=== PATIENT | female | born 1985 | race Caucasian/White ===

== ENCOUNTER 2019-07-27 11:56 | Outpatient (CLI) | payer BC, SELFPAY ==
[2019-07-27 12:09] LABS: Hematocrit 36.2 % (37.0-47.0); Hemoglobin 11.5 g/dL (12.0-15.0); Mean Corpuscular HGB Conc 31.8 g/dl (32-36); Mean Corpuscular Hemoglobin 26.1 pg (26-34); Mean Corpuscular Volume 82.1 fl (80-100); Mean Platelet Volume 10.3 fl (7.4-10.4); Platelet Count Result 281 k/mm3 (150-375); Red Blood Count 4.41 M/mm3 (4.2-5.4); Red Cell Distribution Width 13.8 % (11.5-14.5); White Blood Count 10.4 K/mm3 (4.5-10.0)
[2019-07-29 10:50] LABS: Rapid Plasma Reagin Non-Reactive (NonReactive)
== END 2019-07-27 11:57 | disposition home or self-care (01) ==
PROVIDERS: Visit Provider Obstetrics & Gynecology
DX: Z34.93 Encounter for supervision of normal pregnancy, unspecified, third trimester (principal); Z3A.00 Weeks of gestation of pregnancy not specified
CPT/HCPCS: 36415; 85027; 86592; 86850; 86900; 86901

== ENCOUNTER 2019-07-29 05:28 | Inpatient (IN) | payer BC, SELFPAY ==
--- NOTE | 2019-07-16 13:51 | PC.NURSE ---
VERIFIED WITH OR SCHEDULE AND PATIENT--C/S ON 07/29/19 AT 0730 PATIENT GIVEN REQUISITION FOR LAB DRAW ON 07/27/19
--- NOTE | 2019-07-24 07:59 | PM.IMHP ---
H&P: HPI History of Present Illness Chief complaint: PREIN, previous csection Narrative: Iva Moralse is a 33 year old female 2 PARA 1001 LAST MENSTRUAL PERIOD WAS JUNE OF 2018 WHOSE EDC is 08/04/2019 confirmed by 1st trimester ultrasound presents for repeat section. Had IVF giving an EDC of 08/04/2019. Her has been complicated. 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 She declined attempt at Review of Systems Review of Systems: All systems reviewed & are unremarkable except as noted in HPI and below PMFSH Family History Family History Mother Hypertension Gout Father Gout Sibling Brain tumor Social History Social History Substance use: never Spiritual care concerns: No Meds Home Medications and Allergies Home Medications Medication Instructions Recorded Confirmed Type PNV cmb#95-ferrous fumarate-FA 1 tablet PO DAILY 07/16/19 07/16/19 History [] Allergies Allergy/AdvReac Type Severity Reaction Status Date / Time No Known Allergies Allergy Verified 07/16/19 13:31 Exam Const: General: no acute distress Eyes: General: appearance normal, both eyes and all related structures Neck: Neck: supple and no JVD Thyroid: thyroid normal Resp: Effort & Inspection: normal respiratory effort Auscultation: clear to auscultation bilaterally Cardio: Rate: regular rate Rhythm: regular rhythm GI: Inspection: normal to inspection ( uterus is soft and gravid.) : General: Yes bladder normal to palpation External Female Exam: normal external appearance Speculum Exam - Vagina: normal vaginal discharge and No vaginal bleeding Speculum Exam - Cervix: nontender Bimanual exam- vagina & uterus: bladder normal to palpation and No Cervical tenderness present OB/external & speculum: No vaginal bleeding Skin: General skin exam: no rashes or lesions noted Extrem: General: normal to inspection and no edema Psych: Mental Status: mental status grossly normal Affect: normal affect Assessment and Plan Additional Plan Impression: Term with previous section Plan: Repeat low-transverse section
[2019-07-29] VITALS (72 sets, daily range): BP systolic 94–136; BP diastolic 52–88; PULSE 48–133; RESP 11–18; TEMP 36.3–37.1; O2SAT 96–100; BMI 31.1
[2019-07-29] MEDS: LACTATED RINGERS 1,000 ML 999 ML IV CONT ×2 (05:55→06:44)
--- NOTE | 2019-07-29 05:56 | LDADM ---
This patient, Iva Morales, was admitted to Labor/Delivery/Recovery 120 on 07/29/19 at 05:28. Plans for labor, pain management and were discussed with patient. Patient/family oriented to hospital policies and general routines including ID bracelet, bed and alarms, visiting hours, pain management, procedures, bathroom and other care routines, personal items, smoking policy, room service/diet and guest tray routines, infant security routines, and visiting hours. Patient/Family are encouraged to report perceived risks to care and to ask questions if they do not understand what they are told or what they should do. See OBIX for further documentation.
--- NOTE | 2019-07-29 06:50 | WPDHPUPDATE1 ---
History and Physical Update Update Date/Time: 07/29/19 06:50 History and Physical has been reviewed, including an updated exam of the patient. There are NO changes in the patient's condition. Risks, benefits, and alternatives have been discussed and questions answered. Patient agrees to proceed with procedure.
--- NOTE | 2019-07-29 07:00 | WPDANESEPPF ---
Anes - Initial Pre Proc Eval Procedure: Operation Date: 07/29/19 07:30 Proposed Procedures p Repeat Section - Narendra Mak MD Date/Time: 07/29/19 07:00 Surgeon: Narendra Mak MD Pre Op Diagnosis: section Patient Data Age: 33 Gender: F Height: Weight: Last Vital Signs Pulse 59 L 07/29/19 06:31 BP 127/72 07/29/19 06:31 Allergies Allergy/AdvReac Type Severity Reaction Status Date / Time No Known Allergies Allergy Verified 07/16/19 13:31 Home Medications Medication Instructions Recorded Confirmed Type PNV cmb#95-ferrous fumarate-FA 1 tablet PO DAILY 07/16/19 07/16/19 History [] hydrocodone-acetaminophen [[place]] 1 tablet PO Q4H PRN #30 tablet 07/29/19 Rx Patient hx anesthesia problems: none Family hx anesthesia problems: none PMFSH Past Medical History Medical History (Updated 07/29/19 @ 07:06 by Wallace Suh MD) Pituitary tumor Surgical History Surgical History (Updated 07/29/19 @ 07:00 by Wallace Suh MD) Hx of section Family History Family History Mother Hypertension Gout Father Gout Sibling Brain tumor Social History Social History Smoking status: Never smoker Second hand tobacco smoke exposure: No Substance use: never Spiritual care concerns: No Anes - Eval Final PreProcedure Day of Procedure 07/29/19 07:00 Patient weight: overweight Heart: regular rate and rhythm Lungs: clear to auscultation and normal air movement Airway: Mallampati scale class II Neurological: alert and oriented Last oral intake: >/= 8 hours ASA classification: II Emergent: no Anesthetic plan: proceed Anesthesia type and monitoring: regional spinal Informed Consent: The patient's anesthetic plan and its attendant risks and benefits were discussed with the patient/family/POA. Questions were solicited and answers provided to the satisfaction of the patient/family/POA.
[2019-07-29] MEDS: ceFAZolin 2 GM/D5W 50 ML 2 GM/50 ML BAG IVPB (07:08)
--- NOTE | 2019-07-29 08:07 | PM.PROC ---
Procedure Note - Detailed Date of procedure: 07/29/19 Pre-op diagnosis: section Surgeon: Narendra Mak MD Postop diagnosis repeat section EBL: 395cc Anesthesia: Spinal Procedure: Repeat section Findings: Female 7 lb 3 oz with Apgars of 8 and 9 at 1 and 5 minutes respectively Complications: None Description of procedure patient was prepped and draped in the normal sterile fashion and placed in the e supine position. The abdomen was opened in the Pfannenstiel fashion and progressive layer to the fascia. The fascia was incised in upward outward fashion bilaterally. The underlying muscle sharp dissected. The prior peritoneum elevated Lisy clamps and entered by sharp dissection superiorly and inferiorly down the bladder. Bladder blade was placed bladder flap was formed bladder blade was returned. A low-transverse incision made in the head delivered in the CANDICE position. Anterior posterior shoulder delivered spontaneously. Cord clamped x2 and cut. passed off the table given Apgars of 8 and 9 [id number] and 9 [id number] respectively. Cord clamped x2 and cut passed off the table. The placenta delivered intact manually. After inspecting the uterus for any debris or remains. The fascia was closed with continuous running locking 0 Vicryl from lateral edge to lateral edge. This was followed by a 2nd imbricating running locking 0 Vicryl from lateral edge to lateral edge. Hemostasis was assured ovaries and tubes appeared within normal limits. The uterus returned to the abdomen. The in hysterotomy incision inspected 1 last time and noted to be hemostatic. The laps removed and accounted for. The fascia closed with continuous running 0 Vicryl from lateral edge to midline bilaterally. Irrigation subcutaneous layer and the skin closed with 4 O Monocryl and glue. Blood loss was estimated at 395. All sponge, needle, instrument counts were correct. There were no immediate complications
[2019-07-29] MEDS: KETOROLAC 30 MG/ML VIAL (*BKC) IV PUSH (08:11)
[2019-07-29] MEDS: ONDANSETRON INJ 4 MG/2 ML VIAL IV PUSH (09:24)
[2019-07-29] MEDS: DEXTROSE 5%/0.45% SOD CHL 1,000 ML 125 ML IV CONT (14:55)
[2019-07-29] MEDS: IBUPROFEN 600 MG TABLET PO (19:36)
[2019-07-29] MEDS: DOCUSATE SODIUM 100 MG CAPSULE PO (19:36)
[2019-07-29] MEDS: SIMETHICONE 80 MG TAB.CHEW PO (19:36)
--- NOTE | 2019-07-29 20:08 | PC.NURSE ---
1035Pt admitted to room 281 per stretcher after repeat delivery of viable female at [address] Buck Justice. Mother is a and is choosing to bottle feed . /FOB present; oriented to room, staffing and procedures. Admission folder reviewed. Pt's VSS and assessment WNL.
[2019-07-30 04:50] VITALS: BP 121/64; PULSE 89; RESP 13; TEMP 36.7; O2SAT 100
[2019-07-30] MEDS: IBUPROFEN 600 MG TABLET PO ×3 (04:59→22:42)
[2019-07-30 05:39] LABS: Basophils Percent Auto 0.2 % (0.2-1.2); Eosinophils Absolute Auto 0.1 K/mm3 (0-0.3); Eosinophils Percent Auto 0.7 % (0-4.4); Hematocrit 26.7 % (37.0-47.0); Hemoglobin 8.6 g/dL (12.0-15.0); Immature Granulocyte Absolute 0.07 K/mm3 (0.00-0.031); Immature Granulocyte Percent A 0.6 % (0-0.5); Lymphocytes Absolute Auto 1.69 K/mm3 (0.9-3.2); Lymphocytes Percent Auto 14.5 % (18.3-44.2); Mean Corpuscular HGB Conc 32.2 g/dl (32-36); Mean Corpuscular Hemoglobin 26.9 pg (26-34); Mean Corpuscular Volume 83.4 fl (80-100); Mean Platelet Volume 10.4 fl (7.4-10.4); Monocytes Absolute Auto 0.8 K/mm3 (0.1-0.6); Monocytes Percent Auto 6.8 % (2.6-8.5); Neutrophils Percent Auto 77.2 % (45.5-73.1); Platelet Count Result 279 k/mm3 (150-375); Red Cell Distribution Width 14.5 % (11.5-14.5); White Blood Count 11.7 K/mm3 (4.5-10.0)
--- NOTE | 2019-07-30 06:40 | PC.NURSE ---
PT introductions made and plan of care discussed per post op c section, pain management, bottle feeding, daily care activities. PT verbalized understanding of such care.
--- NOTE | 2019-07-30 06:44 | PM.OBPNVD ---
OB - PN: Subj Subjective Date/time seen: 07/30/19 06:44 Patient comments: no complaints and pain well controlled baby status: doing well and nursing well OB - PN: Obj Data Labs CBC & Chem 7: 07/30/19 04:53 Labs: Laboratory Results - last 24 hr 07/30/19 04:53 WBC 11.7 H RBC 3.20 L Hgb 8.6 L Hct 26.7 L MCV 83.4 MCH 26.9 MCHC 32.2 RDW 14.5 Plt Count 279 MPV 10.4 Immature Gran % (Auto) 0.6 H Neut % (Auto) 77.2 H Lymph % (Auto) 14.5 L [place] % (Auto) 6.8 Eos % (Auto) 0.7 Baso % (Auto) 0.2 Lymph # (Auto) 1.69 [place] # (Auto) 0.8 H Eos # (Auto) 0.1 Baso # (Auto) 0.0 Abs Immat Gran (auto) 0.07 H Absolute Neuts (auto) 9.0 H Absolute Nucleated RBC 0.0 Nucleated RBC % 0.0 OB - PN A/P Plan day: 1 Plan: routine care Time Spent With Patient Time: Total time spent is greater than 50% in coordination of care (as documented) at patient's floor/unit and/or counseling patient: Time with patient: less than 15 minutes Review of Systems Review of Systems: All systems reviewed & are unremarkable except as noted in HPI and below Exam Const: General: no acute distress Eyes: General: appearance normal, both eyes and all related structures Neck: Neck: supple and no JVD Thyroid: thyroid normal Resp: Effort & Inspection: normal respiratory effort Auscultation: clear to auscultation bilaterally Cardio: Rate: regular rate Rhythm: regular rhythm GI: Inspection: normal to inspection Percussion: Yes normal to percussion Auscultation: normal bowel sounds, normoactive bowel sounds and other (wound cdi) : General: Yes bladder normal to palpation External Female Exam: normal external appearance Speculum Exam - Vagina: normal vaginal discharge and No vaginal bleeding Speculum Exam - Cervix: nontender Bimanual exam- vagina & uterus: bladder normal to palpation and No Cervical tenderness present OB/external & speculum: No vaginal bleeding Skin: General skin exam: no rashes or lesions noted Extrem: General: normal to inspection and no edema Psych: Mental Status: mental status grossly normal Affect: normal affect
[2019-07-30 07:30] VITALS: BP 103/57; PULSE 83; RESP 16; TEMP 36.6; O2SAT 98
--- NOTE | 2019-07-30 07:47 | WPDANLDNPN2 ---
Anes-Prog Note L&D-Neuraxial Date/Time: 07/30/19 07:47 Neuraxial medications: intrathecal PF morphine Opiod-related complaints: none Patient feedback: Patient satisfied with post-operative pain management.
--- NOTE | 2019-07-30 07:48 | WPDANLDPN2 ---
Anes-Prog Note L&D Date/Time: 07/30/19 07:48 Comfortable throughout: section Neuraxial method: spinal Epidural/Spinal procedure site: clean & non-tender Neuro status: Neuro function grossly intact. Cardiovascular status: normal Respiratory status: normal Airway patency: baseline Mental status: baseline Post-Op hydration status: normal Vital Signs: Last Vital Signs Temp 36.7 C 07/30/19 04:50 Pulse 89 07/30/19 04:50 Resp 13 07/30/19 04:50 BP 121/64 07/30/19 04:50 Pulse Ox 100 07/30/19 04:50 I/O: Intake & Output 07/29/19 07/29/19 07/30/19 15:59 23:59 07:59 Intake Total 1000 1725 Output Total 266 1125 Balance 734 600 Post-procedural complaints: none Patient feedback: Patient satisfied with anesthetic care.
[2019-07-30] MEDS: SIMETHICONE 80 MG TAB.CHEW PO ×3 (09:59→22:44)
[2019-07-30] MEDS: DOCUSATE SODIUM 100 MG CAPSULE PO ×2 (09:59→15:45)
[2019-07-30] MEDS: POLYSACCHARIDE IRON COMPLEX 150 MG CAPSULE PO ×2 (10:00→15:47)
--- NOTE | 2019-07-30 15:45 | PC.NURSE ---
PT called out tearful, crying with pain in her right neck and shoulder blade. Assisted mom with moving, getting out of bed to chair, warm blanket and kpad applied. hot tea provided and pt was medicated. PT states already feeling better.
[2019-07-30 20:05] VITALS: BP 133/62; PULSE 90; RESP 15; TEMP 36.8; O2SAT 99
[2019-07-31] MEDS: SIMETHICONE 80 MG TAB.CHEW PO (06:32)
[2019-07-31] MEDS: IBUPROFEN 600 MG TABLET PO (06:32)
--- NOTE | 2019-07-31 06:56 | PM.DS ---
DS: Diagnosis Admitting Diagnosis Admitting Diagnosis: term/prev section DS: Summary Time Spent with Patient Time attestation: Total time spent providing and/or coordinating discharge services: Exam Const: General: no acute distress Eyes: General: appearance normal, both eyes and all related structures Neck: Neck: supple and no JVD Thyroid: thyroid normal Resp: Effort & Inspection: normal respiratory effort Auscultation: clear to auscultation bilaterally Cardio: Rate: regular rate Rhythm: regular rhythm GI: Inspection: non-distended GI Palp: Yes Soft to palpation, No Tenderness to palpation present (GI) and No Guarding due to palpation present (GI) Auscultation: normal bowel sounds : General: Yes bladder normal to palpation External Female Exam: normal external appearance Speculum Exam - Vagina: normal vaginal discharge and No vaginal bleeding Speculum Exam - Cervix: nontender Bimanual exam- vagina & uterus: bladder normal to palpation and No Cervical tenderness present OB/external & speculum: No vaginal bleeding Skin: General skin exam: no rashes or lesions noted Extrem: General: normal to inspection and no edema Psych: Mental Status: mental status grossly normal Affect: normal affect Discharge Plan Discharge Attending physician on discharge: Narendra Mak Discharging Clinician: Narendra Mak Patient Disposition: Home, Self-Care Activity: may shower, no straining, may drive after 2 weeks and pelvic rest Diet: heart healthy Wound Care Instructions: follow printed instructions Patient Instructions: Antibiotic Form Stand Alone Forms: General Discharge Information Follow-up/Referrals: Narendra Mak MD [Physician] - Discharge Medications: New hydrocodone-acetaminophen [[place]] 5-325 mg tablet 1 tablet PO Q4H PRN (Reason: pain) Qty: 30 RF: 0 No Action PNV cmb#95-ferrous fumarate-FA [] 28 mg iron- 800 mcg Tablet 1 tablet PO DAILY RF: 0 Date of admission: 07/29/19 05:28 Primary Care Provider: GeorgianaTorsten Admitting Provider: Narendra Mak Attending physician on admission: Narendra Mka
[2019-07-31] MEDS: POLYSACCHARIDE IRON COMPLEX 150 MG CAPSULE PO (07:35)
[2019-07-31] MEDS: DOCUSATE SODIUM 100 MG CAPSULE PO (07:35)
[2019-07-31 07:40] VITALS: BP 126/72; PULSE 50; RESP 16; TEMP 37.3; O2SAT 100
--- NOTE | 2019-07-31 07:40 | PC.NURSE ---
Patient instructed on viewing the discharge video Mother & Baby Care, The First Two Weeks online. Patient was given the opportunity and encouraged to ask questions. Patient verbalized understanding of information shared and has been given the mother/baby guide for home reference.
[2019-08-02 10:24] VITALS: BP 134/80; PULSE 76; RESP 18; TEMP 36.6
== END 2019-07-31 09:34 | disposition home or self-care (01) | DRG 788 ==
LOC: ANHLDR 06:51 → ANHOB2 10:41
PROVIDERS: Admitting Provider Obstetrics & Gynecology; PCP Family Medicine; Visit Provider Obstetrics & Gynecology
PROC: 10D00Z1 Extraction of Products of Conception, Low, Open Approach (ICD-10-PCS; CPT 59514; principal; 2019-07-29 07:30)
DX: O34.211 Maternal care for low transverse scar from previous cesarean delivery (principal); Z3A.39 39 weeks gestation of pregnancy; Z37.0 Single live birth; Z23 Encounter for immunization; O34.03 Maternal care for unspecified congenital malformation of uterus, third trimester; Q51.3 Bicornate uterus
CPT/HCPCS: 36415; 85025; A9270; J0131; J0690; J1200; J1885; J2274; J2370; J2405; J2590; J7120

== ENCOUNTER 2023-02-14 10:15 | Outpatient (CLI) | payer BC, SELFPAY ==
[2023-02-14 10:32] LABS: Hematocrit 39.5 % (35.0-49.0); Hemoglobin 13.1 g/dL (12.0-15.0)
== END 2023-02-14 10:16 | disposition home or self-care (01) ==
PROVIDERS: PCP Obstetrics & Gynecology; Visit Provider Obstetrics & Gynecology
DX: Z01.818 Encounter for other preprocedural examination (principal); N92.6 Irregular menstruation, unspecified
CPT/HCPCS: 36415; 85014; 85018

== ENCOUNTER 2023-02-17 03:22 | Day surgery (SDC) | payer BC, SELFPAY ==
[2023-02-09 10:17] VITALS: BMI 24.1
--- NOTE | 2023-02-09 10:21 | PC.NURSE ---
Report to the Outpatient Waiting Room, entrance under the green pavilion located off [facility], at time 0845 on date 02/17/23. Planned Procedure Time: 1045. Time changes happen often and if your time is changed the preop area will call you the afternoon before. - You and your visitor will be asked to self-screen and do not enter if you have any COVID symptoms. - A mask is optional within the hospital at this time. Patients may have clear liquids (water, carbonated beverages, clear teas, apple juice) until 3 hours prior to surgery with a maximum of 20 ounces. - No food from midnight until time of surgery Take the following medications with a SIP of water the morning of surgery: N/A DO NOT STOP ANY OF YOUR OTHER PRESCRIPTION MEDICATIONS PRIOR TO SURGERY ?EXCEPT THE FOLLOWING Medications to discontinue per physician: N/A Date to take last dose: N/A Please no make-up, nail icelandic, hairspray, perfume, deodorant, or body powder the day of surgery. No jewelry (including any body piercings) or valuables the day of surgery, leave them at home. Please take a shower or bath the night before, or the morning of, surgery with an antibacterial soap. Wear comfortable, loose fitting clothing. - Jewelry must be removed prior to entering the operating room. Rings and piercings that are not removed may be cut off. - The hospital will not accept responsibility for valuables. - Please leave all valuables, including medications, at home the day of surgery. If you are going home after surgery, a licensed milk pickup truck driver must drive you home. - NO public transportation without another adult if you receive anesthesia. - We recommend that an adult stay with you for 24 hours following discharge. - We also recommend that you do not drive, make important decision, drink alcoholic beverages, or take any drugs that were not prescribed by your health care provider for at least 24 hours after your discharge time. Follow any additional instructions given to you from your surgeon. If you or anyone in your household have experienced Covid symptoms in the past week, please notify your surgeon or the nurse liaison at the phone number below for possible testing. Telephone instructions given to PT - IRIS GEIGER and asked if any additional questions and then verbalized understanding. Patient advised to call surgeon office or pre surgery nurse liaison [phone] if any additional questions.
--- NOTE | 2023-02-15 07:51 | P.HP_ITS ---
H&P: HPI History of Present Illness Date/Time: 02/15/23 07:51 Chief Complaint: Excessive heavy bleeding Narrative: Since 37-year-old female with heavy bleeding and findings on ultrasound that appeared to be a uterine polyp. She will undergo hysteroscopy/dilatation curettage. Risks and benefits reviewed including but not exclusive of , aspiration pneumonia, bleeding, transfusion, perforation injury to bowel bladder, bladder, ureters, or other internal organs with need for open laparotomy. She received the AC handouts entitled hysteroscopy as well as dilatation curettage. She had all questions answered. She asked to proceed. [facility] Past Medical History Medical History Pituitary tumor Surgical History Surgical History Hx of section Family History Family History Mother Hypertension Gout Father Gout Sibling Brain tumor Social History Social History Smoking status: Never smoker Second hand tobacco smoke exposure: No Alcohol intake: never Substance use: never Substance use type: does not use Living arrangements: with family Spiritual care concerns: No Meds Home Medications and Allergies Home Medications Medication Instructions Recorded Confirmed Type No Home Medications 02/09/23 02/09/23 History Allergies Allergy/AdvReac Type Severity Reaction Status Date / Time No Known Allergies Allergy Verified 02/09/23 10:16 Exam Const: General: cooperative, healthy appearing and comfortable Nutritional Appearance: average body habitus Orientation/consciousness: oriented to p erson, oriented to place and oriented to time HENMT: Head: normal to inspection Resp: Effort & Inspection: normal respiratory effort Cardio: Rate: regular rate Rhythm: regular rhythm Heart sounds: S1 normal heart sound present and S2 normal heart sound present GI: Inspection: normal to inspection : External Female Exam: normal external appearance Speculum Exam - Vagina: normal appearance of the vagina Speculum Exam - Cervix: normal appearance of the cervix Bimanual exam- vagina & uterus: soft Bimanual Exam- Adnexa, other: normal adnexae Assessment and Plan Assessment and plan (1) Vaginal bleeding: Code(s): N93.9 - Abnormal uterine and vaginal bleeding, unspecified Status: Acute Plan Hysteroscopy/dilatation curettage
--- NOTE | 2023-02-17 06:37 | WPDHPUPDATE1 ---
History and Physical Update Update Date/Time: 02/17/23 06:37 History and Physical has been reviewed, including an updated exam of the patient. There are NO changes in the patient's condition. Risks, benefits, and alternatives have been discussed and questions answered. Patient agrees to proceed with procedure.
[2023-02-17 08:15] VITALS: BP 103/63; PULSE 72; RESP 16; TEMP 37.7; O2SAT 100
[2023-02-17] MEDS: LACTATED RINGERS 1,000 ML 30 ML IV CONT (08:15)
[2023-02-17] MEDS: ACETAMINOPHEN 500 MG TABLET 1000 MG PO (08:15)
--- NOTE | 2023-02-17 08:39 | WPDANESEPPF ---
Anes - Initial Pre Proc Eval Procedure: Operation Date: 02/17/23 09:45 Proposed Procedures p Hysteroscopy Dilation and Curettage with Polypectomy - Narendra Justice MD Date/Time: 02/17/23 08:39 Surgeon: Narendra Justice MD Pre Op Diagnosis: irregular bleeding, uterine polyp Patient Data Age: 37 Gender: F Height: 1.65 m Weight: 65.8 kg Allergies Allergy/AdvReac Type Severity Reaction Status Date / Time No Known Allergies Allergy Verified 02/09/23 10:16 Home Medications Medication Instructions Recorded Confirmed Type hydrocodone 5 mg-acetaminophen 325 1 tablet PO Q4H PRN pain #30 tabs 02/17/23 Rx mg tablet Patient hx anesthesia problems: none Family hx anesthesia problems: none Results Review: All pre-operative results and documents have been reviewed as part of the pre-operative evaluation. [facility] Past Medical History Medical History Pituitary tumor Surgical History Surgical History Hx of section Family History Family History Mother Hypertension Gout Father Gout Sibling Brain tumor Social History Social History Smoking status: Never smoker Second hand tobacco smoke exposure: No Alcohol intake: never Substance use: never Substance use type: does not use Living arrangements: with family Spiritual care concerns: No Anes - Eval Final PreProcedure Day of Procedure 02/17/23 08:39 Patient weight: normal Heart: regular rate and rhythm Lungs: clear to auscultation Airway: Mallampati scale class 1 Neurological: alert and oriented Last oral intake: >/= 8 hours ASA classification: I Emergent: no Anesthetic plan: proceed Anesthesia type and monitoring: general GIVS and standard monitoring Results Review: All pre-operative results and documents have been reviewed as part of the pre-operative evaluation. Informed Consent: The patient's anesthetic plan and its attendant risks and benefits were discussed with the patient/family/POA. Questions were solicited and answers provided to the satisfaction of the patient/family/POA.
[2023-02-17] MEDS: LIDOCAINE HCL 1% LOCAL INJ 10 ML VIAL INFILTRATE (09:47)
[2023-02-17 10:07] VITALS: BP 94/51; PULSE 70; RESP 14; O2SAT 100
--- NOTE | 2023-02-17 10:07 | W.PM.PROC2 ---
Procedure Note - Detailed Date of Procedure 02/17/23 Pre-op Diagnosis irregular bleeding, uterine polyp Post-op Diagnosis Same Procedure Performed Hysteroscopy/dilatation curettage Surgeon Narendra Justice MD Anesthesia MAC and Local Indications Is a 37-year-old female with irregular heavy bleeding admitted for hysteroscopy D&C Findings Very thick irregular endometrial tissue Description of Procedure Patient was prepped draped in normal sterile fashion placed in dorsal lithotomy position. Under excellent IV sedation weighted speculum placed in posterior fornix vagina. Anterior lip of cervix grasped with single-tooth tenaculum. 2.5cc 1% xylocaine anesthesia placed at 2, 4, 8, 10:00 a.m. of the cervix. Uterus sounded to 8cm. Serial dilatation with fragmented dilators performed followed by passage of the 5mm visualizing hysteroscope. Normal saline was used as visualizing medium. Thick irregular endometrial tissue was seen but no evidence of a definitive polyp. The uterine tissue was scraped over 360? using the rotating instrument. The instruments withdrawn the patient was awakened went to recovery in satisfactory condition. All sponge, needle, instrument counts were correct. There were no immediate complications Estimated Blood Loss 5 Drains No Packing No Pathology Yes Complications No immediate complications Condition Stable
[2023-02-17 10:35] VITALS: BP 105/60; PULSE 60
[2023-02-17 11:00] VITALS: BP 103/63; PULSE 56
== END 2023-02-17 11:16 | disposition home or self-care (01) ==
PROVIDERS: PCP Family Medicine; Visit Provider Obstetrics & Gynecology
PROC: 0U5B8ZZ Destruction of Endometrium, Via Natural or Artificial Opening Endoscopic (ICD-10-PCS; CPT 58563; principal; 2023-02-17 09:45)
DX: N93.9 Abnormal uterine and vaginal bleeding, unspecified (principal)
CPT/HCPCS: 58558; 88305; A9270; J1885; J2250; J2405; J2704; J3010; J7120

== ENCOUNTER 2024-04-16 00:29 | Day surgery (SDC) | payer BC, SELFPAY ==
[2024-04-15 14:07] VITALS: BMI 23.3
--- NOTE | 2024-04-15 14:08 | PC.NURSE ---
Report to the Outpatient Waiting Room, entrance under the green pavilion located off [facility], at time _0800_ on date _04/16/24_. Planned Procedure Time: __1000__.? Time changes happen often and if your time is changed the preop area will call you the afternoon before. - You and your visitor will be asked to self-screen and do not enter if you have any COVID symptoms. Please call surgeon if you need to reschedule. - A mask is optional within the hospital at this time. Patients may have clear liquids (water, carbonated beverages, clear teas, apple juice) until 3 hours prior to surgery with a maximum of 20 ounces. - No food from midnight until time of surgery and no smoking. This includes no chewing gum, candy or mints. - Infants may have breast milk until 4 hours before surgery, formula 6 hours prior to surgery. - Children will be allowed to drink immediately following surgery.? If applicable, please bring a bottle or sippy cup to assist with drinking. Juice, water, soda, and popsicles are readily available.? For infants on formula, please bring formula the day of surgery.? Pacifiers are allowed. Take only the following medications with a SIP of water on the morning of surgery: __None____ DO NOT STOP ANY OF YOUR OTHER PRESCRIPTION MEDICATIONS PRIOR TO SURGERY EXCEPT THE FOLLOWING Medications to discontinue per physician Date to take last dose Please no make-up, nail yoruba, hairspray, perfume, deodorant, or body powder the day of surgery.? No jewelry (including any body piercings) or valuables the day of surgery, leave them at home.? Please take a shower or bath the night before, or the morning of, surgery with an antibacterial soap.? Wear comfortable, loose fitting clothing.? Children are encouraged to wear pajamas. - Jewelry must be removed prior to entering the operating room.? Rings and piercings that are not removed may be cut off. - The hospital will not accept responsibility for valuables.? - Please leave all valuables, including medications, at home the day of surgery. If you are going home after surgery, a licensed route sales delivery drivers supervisor must drive you home.? - NO public transportation without another adult if you receive anesthesia. - We recommend that an adult stay with you for 24 hours following discharge. - We also recommend that you do not drive, make important decision, drink alcoholic beverages, or take any drugs that were not prescribed by your health care provider for at least 24 hours after your discharge time. For Pediatric surgeries, we recommend two adults accompany the child home. Follow any additional instructions given to you from your surgeon. Telephone instructions given to _patient__and asked if any additional questions and then verbalized understanding. Patient advised to call surgeon office or pre surgery nurse liaison [phone] if any additional questions.
--- NOTE | 2024-04-16 07:07 | WPDHPUPDATE1 ---
History and Physical Update Update Date/Time: 04/16/24 07:07 History and Physical has been reviewed, including an updated exam of the patient. There are NO changes in the patient's condition. Risks, benefits, and alternatives have been discussed and questions answered. Patient agrees to proceed with procedure.
[2024-04-16 07:56] VITALS: BP 102/60; PULSE 77; RESP 16; TEMP 36.9; O2SAT 100
[2024-04-16] MEDS: LACTATED RINGERS 1,000 ML 30 ML IV CONT (08:10)
[2024-04-16] MEDS: ACETAMINOPHEN 500 MG TABLET 1000 MG PO (08:20)
--- NOTE | 2024-04-16 08:55 | P.PNAN_ITS ---
Anes - Initial Pre Proc Eval Procedure: Operation Date: 04/16/24 08:30 Proposed Procedures p Hysteroscopy Dilation and Curettage with Alexandra Endometrial Ablation - Narendra Justice MD Date/Time: 04/16/24 08:55 Surgeon: Narendra Justice MD Pre Op Diagnosis: irr. heavy bleeding, pelvic pain Patient Data Age: 38 Gender: F Height: 1.65 m Weight: 63.6 kg Allergies Allergy/AdvReac Type Severity Reaction Status Date / Time No Known Allergies Allergy Verified 04/15/24 13:59 Home Medications Medication Instructions Recorded Confirmed Type hydrocodone 5 mg-acetaminophen 325 1 tablet PO Q4H PRN pain #20 tabs 04/16/24 Rx mg tablet Patient hx anesthesia problems: none Family hx anesthesia problems: none Results Review: All pre-operative results and documents have been reviewed as part of the pre- operative evaluation. [facility] Past Medical History Medical History Pituitary tumor Surgical History Surgical History Hx of section Family History Family History Mother Hypertension Gout Father Gout Sibling Brain tumor Social History Social History Smoking status: Never smoker Second hand tobacco smoke exposure: No Alcohol intake: current Drinks per week: 2 Substance use: never Substance use type: does not use Living arrangements: with family Spiritual care concerns: No Anes - Eval Final PreProcedure Day of Procedure 04/16/24 08:55 Patient weight: normal Heart: regular rate and rhythm Lungs: clear to auscultation Airway: Mallampati scale class II Neurological: alert and oriented Last oral intake: >/= 8 hours ASA classification: II Emergent: no Anesthetic plan: proceed Anesthesia type and monitoring: general GIVS and standard monitoring Results Review: All pre-operative results and documents have been reviewed as part of the pre- operative evaluation. Informed Consent: The patient's anesthetic plan and its attendant risks and benefits were discussed with the patient/family/POA. Questions were solicited and answers provided to the satisfaction of the patient/family/POA.
[2024-04-16] MEDS: LIDOCAINE HCL 1% LOCAL INJ 10 ML VIAL INFILTRATE (09:16)
--- NOTE | 2024-04-16 09:30 | W.PM.PROC2 ---
Procedure Note - Detailed Date of Procedure 04/16/24 Pre-op Diagnosis irr. heavy bleeding, pelvic pain Post-op Diagnosis Other ( excessive bleeding/uterine polyp) Procedure Performed hysteroscopy/ polypectomy/ dilatation curettage/Alexandra ablation Surgeon Narendra Justice MD Anesthesia MAC and Local Indications 38-year-old female with excessive heavy bleeding Findings small uterine polyp benign in appearance Description of Procedure patient was prepped draped in the normal sterile fashion placed in the dorsal lithotomy position. Under excellent IV sedation weighted speculum placed in posterior fornix vagina bleed. Anterior lip of the cervix grasped with a single-tooth tenaculum. 2.5cc 1% xylocaine anesthesia placed at 2, 4, 8, 10:00 a.m. of the cervix. Uterus sounded to 9cm. Serial dilatation fragmented dilators performed followed by passage of 5mm visualizing hysteroscope using normal saline as visualizing medium. A uterine polyp was seen. The reticulating instrument was then placed in the uterus and the and removed and total. The uterus was then scraped over the entire 360? until good grating sound was heard the instruments removed. The Alexandra was then undertaken and burned at the appropriate 120seconds she tolerated the procedure well the instruments were removed patient went recovery in satisfactory condition. All sponge, needle, instrument counts were correct. Were immediate complications Estimated Blood Loss 5 Drains No Packing No Pathology Yes Complications No immediate complications Condition Stable Disposition PACU
[2024-04-16 09:36] VITALS: BP 98/49; PULSE 74; RESP 14; O2SAT 100
[2024-04-16 10:05] VITALS: BP 101/51; PULSE 65; O2SAT 100
[2024-04-16 10:35] VITALS: BP 102/61; PULSE 68
== END 2024-04-16 10:40 | disposition home or self-care (01) ==
PROVIDERS: PCP Family Medicine; Visit Provider Obstetrics & Gynecology
PROC: 0U5B8ZZ Destruction of Endometrium, Via Natural or Artificial Opening Endoscopic (ICD-10-PCS; CPT 58563; principal; 2024-04-16 08:30)
DX: N84.0 Polyp of corpus uteri (principal); Z79.891 Long term (current) use of opiate analgesic; Z98.890 Other specified postprocedural states
CPT/HCPCS: 58558; 88305; A9270; J1100; J1885; J2003; J2250; J2405; J2704; J3010; J7120